=== PATIENT | female | born 1950 | race Caucasian/White ===

== ENCOUNTER 2021-11-06 17:10 | Emergency (ER) | payer OTHER ==
[2021-11-06 17:35] VITALS: BP 113/70; PULSE 58; RESP 18; TEMP 97.6; BMI 30.7
[2021-11-06 20:10] LABS: VENOUS BASE EXCESS -2.1 mmol/L (-2-2); VENOUS O2 SATURATION 34.9 % (70-80); VENOUS PCO2 46.8 mmHg (38-52); VENOUS PH 7.332 (7.310-7.410)
[2021-11-06 20:17] LABS: BASO % 0.6 % (0-2.0); EOS % 3.1 % (0-4.5); HEMATOCRIT 32.7 % (32.4-45.2); LYMPH % 33.4 % (8-40); MCHC 33.6 g/dl (32.0-36.0); MEAN CELL VOLUME 92.4 fl (80-96); MEAN PLT VOLUME 8.4 fl (7.5-11.1); MONO % 7.6 % (3.8-10.2); NEUT % 55.3 % (42.8-82.8); PLATELET COUNT 274 10^3/uL (134-434); RBC 3.54 M/mm3 (3.60-5.2); RDW 13.1 % (11.6-15.6); WHITE BLOOD COUNT 9.1 K/mm3 (4.0-10.0)
[2021-11-06 20:22] LABS: PROTHROMBIN TIME (PATIENT) 11.5 SEC (9.7-13.0)
[2021-11-06 20:25] LABS: ACTIVATED PTT 29.9 SECONDS (25.2-36.5)
[2021-11-06 20:42] LABS: ALBUMIN 3.8 g/dl (3.4-5.0); BLOOD UREA NITROGEN 38.8 mg/dL (7-18); CALCIUM 9.4 mg/dL (8.5-10.1); MAGNESIUM 2.3 mg/dL (1.8-2.4)
[2021-11-06 20:46] LABS: CREATININE 1.3 mg/dL (0.55-1.3)
[2021-11-06 20:47] LABS: BILIRUBIN,TOTAL 0.5 mg/dL (0.2-1); TOT PROT 7.2 g/dl (6.4-8.2)
[2021-11-06] MEDS ORDERED: SODIUM CHLORIDE 0.9% 500 ML INFUS.BAG IV ONE (20:54)
[2021-11-06] MEDS ORDERED: DEXAMETHASONE 4 MG TABLET (FP) PO ONE (20:55)
[2021-11-06] MEDS ORDERED: DEXAMETHASONE SOD PHOSPHATE 10 MG/1 ML VIAL IVPUSH ONE (20:57)
[2021-11-06] MEDS ORDERED: DEXAMETHASONE SOD PHOSPHATE 10 MG/1 ML VIAL ONE (20:58)
== END 2021-11-06 21:55 | disposition home or self-care (01) ==
LOC: JER 17:10
PROC: 3E033GC Introduction of Other Therapeutic Substance into Peripheral Vein, Percutaneous Approach (ICD-10-PCS; principal; 2021-11-06)
DX: R05.9 Cough, unspecified (principal)
CPT/HCPCS: 0241U-QW; 36415; 71046-TC-FY; 80053; 82550; 82803; 83735; 84484; 85025; 85610; 85730; 93005; 93010; 99285-25; J1100